=== PATIENT | male | born 1940 | race Caucasian/White ===

== ENCOUNTER → 2017-09-07 | Outpatient (CLI) | payer MEDICARE, OTHER ==
[2016-09-17 12:14] VITALS: BMI 32.9
[~2017-09-07] MED LIST: ALBU8.5H IH; ASPI-757 PO; ATOR-1 PO; ATOR40TA24 PO; ATOR40TA69 PO; BUPR-149 PO; CARB-71 PO; Cefdinir PO; DOCU100C49 PO; DOXY-179 PO; ESOM20TA PO; FINA5TAB67 PO; INSU100I30 SUBQ; INSU100I35 SQ; LANI SUBQ; LEUP3.753 IM; LOSA100T67 PO; LOSA50TA72 PO; MEMA10TA3 PO; METH4TAB66 PO; METO-253 PO; MIRA50TA PO; OMEP-137 PO; ONDA4TAB97 PO; OXYC-865 PO; OXYC5CAP21 PO; OXYGENHOME INH; RIVA10TA PO; RIVA20TA PO; TAMS0.4C70 PO
== END ==
LOC: LAB 13:36
PROVIDERS: ATTEND Urology
DX: C61 Malignant neoplasm of prostate (principal)
CPT/HCPCS: 36415; 84153; 84403

== ENCOUNTER → 2017-10-12 | Outpatient (CLI) | payer MEDICARE, OTHER ==
[2016-09-17 12:14] VITALS: BMI 32.9
[~2017-10-12] MED LIST changes: +DICL100G39 TOP; +OMEP-125 PO
[2017-10-12 15:58] LABS: PLATELET COUNT, AUTOMATED 200 K/uL (150-450)
== END ==
LOC: LAB 15:30
PROVIDERS: ATTEND Family Medicine
DX: E11.9 Type 2 diabetes mellitus without complications (principal); E55.9 Vitamin D deficiency, unspecified; E53.8 Deficiency of other specified B group vitamins; I48.91 Unspecified atrial fibrillation
CPT/HCPCS: 36415; 82040; 82247; 82306; 82310; 82374; 82435; 82565; 82607; 82947; 83036; 84075; 84132; 84155; 84295; 84450; 84460; 84520; 85025

== ENCOUNTER 2017-11-22 23:47 | Emergency (ER) | payer MEDICARE, OTHER ==
[2016-09-17 12:14] VITALS: BMI 32.9
[2017-11-23] MEDS ORDERED: NS(*) 0.9% 1000 ML BAG 1,000 ML IV ONE
[2017-11-23] MEDS ORDERED: PIPERACILLIN/TAZO*3.375GM VIAL 3.375 GM in NS(*) 0.9% 100 ML ADDVANT BAG 100 ML IVPB ONE
--- NOTE | 2017-11-23 00:04 | ER Report ---
History and Physical Time Seen By MD: 23:51 HPI/ROS CHIEF COMPLAINT: respiratory distress HISTORY OF PRESENT ILLNESS: This is a 77 year old male. His found him slumped down off the edge of his chair. He was having some alteration of his mental status. EMS was called and brought him here to the ER. He was tachycardia , tachypneic, hypoxic and hypotensive. Unable to get oxygen saturations up with non-rebreather at 15 liters. His reported that he had been in normal health earlier today. He did have an episode of vomiting and there was concern that he may have aspirated. No report of illness earlier today. He is currently having altered mental status, so unable to get any verbal information from the patient. He does look like he will look at us and register that we are talking to him. He has short periods where he will nod his head yes or no. REVIEW OF SYSTEMS: Unable to obtain Allergies: Coded Allergies: shellfish derived (Verified Allergy, Intermediate, NAUSEA/VOMITING, ) Home Meds Active Scripts Diclofenac Sodium 1% Gel (VOLTAREN 1% GEL) 100 Gm Gel..gram., 2 GM TOP QID Y for PAIN for 90 Days, #3 TUBE 4 Refills Prov:MEGAN FROST MD 10/13/17 Carbidopa/Levodopa (SINEMET 25-100 MG TABLET) 1 Each Tablet, 1 EACH PO TID for 90 Days, #270 TAB 2 Refills Prov:DEMARCO WALSH MD 03/15/17 Reported Medications Omeprazole (OMEPRAZOLE) 20 Mg Capsule.dr, 1 CAP PO QDAY, CAP 10/12/17 Oxygen (OXYGEN) Unknown Strength Inha, 3 L INH HS, L 02/24/17 Insulin Glargine (LANTUS) Unknown Strength Soln, 30 SUBQ HS, ML 02/24/17 Atorvastatin Calcium (ATORVASTATIN CALCIUM) 40 Mg Tablet, 0.5 TAB PO QDAY 02/24/17 Finasteride (FINASTERIDE) 5 Mg Tablet, 1 TAB PO QDAY 12/29/16 Rivaroxaban 20 Mg (XARELTO 20 MG) 20 Mg Tablet, 1 TAB PO QPM 09/16/16 Albuterol Sulfate 90 Mcg/Act (PROAIR HFA 90 MCG/ACT) 8.5 Gm Hfa.aer.ad, 2 PUFF IH PRN, INHALER 09/16/16 Insulin Aspart 100 Un/Ml Pen (NOVOLOG FLEXPEN) 100 Unit/1 Ml Insuln.pen, 16 UNIT SQ AT MEALTIMES 09/16/16 Memantine HCl 10 MG (Memantine HCl 10 MG) 10 Mg Tablet, 1 TAB PO BID 06/30/16 Metoprolol Tartrate (METOPROLOL TARTRATE) 50 Mg Tab, 0.5 TAB PO BID 06/30/16 Bupropion Hcl (BUPROPION HCL) 100 Mg Tablet, 1 TAB PO BID 06/30/16 Reviewed Nurses Notes: Yes Old Medical Records Reviewed: Yes Hx Smoking: No Smoking Status: Never Smoker Hx Substance Use Disorder: No Hx Alcohol Use: No Constitutional Vital Sign - Last 24 Hours 11/22/17 11/22/17 11/22/17 11/22/17 23:47 23:47 23:50 23:52 Pulse 138 137 Resp 37 35 B/P (MAP) 80/68 (72) Pulse Ox 73 77 O2 Flow Rate 15.0 11/22/17 11/23/17 11/23/17 11/23/17 23:57 00:02 00:05 00:07 Pulse 138 146 132 Resp 40 40 40 B/P (MAP) 94/87 (89) Pulse Ox 79 78 11/23/17 11/23/17 11/23/17 11/23/17 00:10 00:15 00:15 00:17 Pulse 148 Resp 40 B/P (MAP) 115/92 (100) 121/103 (109) Pulse Ox 88 FiO2 100.0 11/23/17 11/23/17 11/23/17 11/23/17 00:20 00:22 00:25 00:27 Pulse 166 138 Resp 36 38 B/P (MAP) 131/117 (122) 126/81 (96) Pulse Ox 69 91 11/23/17 11/23/17 11/23/17 11/23/17 00:32 00:37 00:40 00:42 Pulse 138 140 146 Resp 42 41 42 B/P (MAP) 84/70 (75) Pulse Ox 92 90 11/23/17 11/23/17 11/23/17 11/23/17 00:47 00:50 00:52 00:57 Pulse 141 140 142 Resp 39 45 34 B/P (MAP) 90/77 (81) Pulse Ox 88 92 89 11/23/17 11/23/17 11/23/17 11/23/17 01:07 01:14 01:17 01:20 Pulse 140 Resp 44 43 B/P (MAP) 153/102 (119) 150/78 (102) Pulse Ox 90 11/23/17 11/23/17 11/23/17 11/23/17 01:22 01:32 01:37 01:38 Pulse 129 125 121 Resp 45 46 30 B/P (MAP) 147/25 (65) Pulse Ox 88 88 85 11/23/17 11/23/17 11/23/17 11/23/17 01:42 01:47 01:50 01:52 Pulse 117 Resp 46 33 8 B/P (MAP) 72/58 (63) Pulse Ox 60 11/23/17 11/23/17 11/23/17 01:57 02:32 02:37 Pulse 0 ? Resp 0 Physical Exam General Appearance: The patient is able to make eye contact, nods yes and no to some questions. Respiratory distress and very ill in appearance. Eyes: Pupils are equal, round. No pallor, injection or icterus. ENT: Mucous membranes are dry. Some black material in mouth after vomiting. Neck: Supple. Respiratory: Tachypnea. Very wet and coarse breath sounds, worse in the left side. Increase work of breathing. Improves somewhat with BiPAP. Cardiovascular: Tachycardia. Poor peripheral perfusion with cold extremities and cyanosis, weak pulses. 1+ ankle edema. Gastrointestinal: Abdomen with minimal distension, no apparent tenderness. No masses or organomegaly. Normal active bowel sounds. Neurological: Very drowsy, will respond minimally to some questions. Will squeeze hand. Moving extremities, but weakly only. Skin: Cool, clammy. No rashes. Musculoskeletal: No apparent tenderness, but difficult to tell. DIFFERENTIAL DIAGNOSIS: After history and physical exam, differential diagnosis was considered for a patient with sign and symptoms of sepsis that I feel are from pneumonia given the coarse wet rales in the left lungs. Medical Decision Making Data Points Result Diagram: 11/23/17 0130 11/23/17 013 Laboratory Hematology Test 11/23/17 01:30 11/23/17 01:47 Red Blood Count 5.78 M/uL (4.00-5.60) Mean Corpuscular Volume 93.1 fL (80.0-96.0) Mean Corpuscular Hemoglobin 31.0 pg (26.0-33.0) Mean Corpuscular Hemoglobin Concent 33.3 g/dL (32.0-36.0) Red Cell Distribution Width 14.7 % (11.5-14.5) Mean Platelet Volume 7.9 fL (7.2-11.1) Neutrophils (%) (Auto) 73.9 % (39.4-72.5) Lymphocytes (%) (Auto) 21.9 % (17.6-49.6) Monocytes (%) (Auto) 3.5 % (4.1-12.4) Eosinophils (%) (Auto) 0.3 % (0.4-6.7) Basophils (%) (Auto) 0.4 % (0.3-1.4) Nucleated RBC Relative Count (auto) 0.0 /100WBC Neutrophils # (Auto) 12.4 K/uL (2.0-7.4) Lymphocytes # (Auto) 3.7 K/uL (1.3-3.6) Monocytes # (Auto) 0.6 K/uL (0.3-1.0) Eosinophils # (Auto) 0.1 K/uL (0.0-0.5) Basophils # (Auto) 0.1 K/uL (0.0-0.1) Nucleated RBC Absolute Count (auto) 0.01 K/uL Prothrombin Time 17.9 seconds (12.0-14.4) Prothromb Time International Ratio 1.45 Activated Partial Thromboplast Time 31 seconds (23-35) Sodium Level 144 mmol/L (137-145) Potassium Level 2.9 mmol/L (3.5-5.0) Chloride Level 101 mmol/L (98-107) Carbon Dioxide Level 17 mmol/L (22-30) Blood Urea Nitrogen 26 mg/dl (9-21) Creatinine 1.80 mg/dl (0.66-1.25) Glomerular Filtration Rate Calc 37.0 Random Glucose 387 mg/dl (75-110) Lactate 8.0 mmol/L (0.7-2.1) Calcium Level 9.4 mg/dl (8.4-10.2) Total Bilirubin 0.6 mg/dl (0.2-1.3) Aspartate Amino Transf (AST/SGOT) 30 U/L (0-35) Alanine Aminotransferase (ALT/SGPT) < 6 U/L (0-56) Alkaline Phosphatase 102 U/L (0-126) Troponin I 0.092 ng/ml Total Protein 6.4 gm/dl (6.3-8.2) Albumin 3.5 g/dl (3.5-5.0) Urine Color [place] Urine Clarity Slightly-cloudy Urine pH 5.0 pH (4.8-9.5) Urine Specific [place] 1.026 Urine Protein 30 mg/dL (NEGATIVE) Urine Glucose (UA) 50 mg/dL (NEGATIVE) Urine Ketones Trace mg/dL (NEGATIVE) Urine Blood Negative (NEGATIVE) Urine Nitrite Negative (NEGATIVE) Urine Bilirubin Negative (NEGATIVE) Urine Urobilinogen 4.0 mg/dL (0.2-1.9) Urine Leukocyte Esterase Negative (NEGATIVE) Urine RBC 1 /HPF (0-2/HPF) Urine WBC 4 /HPF (0-5/HPF) Urine Squamous Epithelial Cells Many /LPF (NONE-FEW) Urine Bacteria Negative /HPF (NONE-FEW) Urine Mucus Few /HPF (NONE-FEW) Chemistry Test 11/23/17 01:30 11/23/17 01:47 White Blood Count 16.8 k/uL (4.5-11.0) Red Blood Count 5.78 M/uL (4.00-5.60) Hemoglobin 17.9 g/dL (14.0-18.0) Hematocrit 53.8 % (42.0-52.0) Mean Corpuscular Volume 93.1 fL (80.0-96.0) Mean Corpuscular Hemoglobin 31.0 pg (26.0-33.0) Mean Corpuscular Hemoglobin Concent 33.3 g/dL (32.0-36.0) Red Cell Distribution Width 14.7 % (11.5-14.5) Platelet Count 272 K/uL (150-450) Mean Platelet Volume 7.9 fL (7.2-11.1) Neutrophils (%) (Auto) 73.9 % (39.4-72.5) Lymphocytes (%) (Auto) 21.9 % (17.6-49.6) Monocytes (%) (Auto) 3.5 % (4.1-12.4) Eosinophils (%) (Auto) 0.3 % (0.4-6.7) Basophils (%) (Auto) 0.4 % (0.3-1.4) Nucleated RBC Relative Count (auto) 0.0 /100WBC Neutrophils # (Auto) 12.4 K/uL (2.0-7.4) Lymphocytes # (Auto) 3.7 K/uL (1.3-3.6) Monocytes # (Auto) 0.6 K/uL (0.3-1.0) Eosinophils # (Auto) 0.1 K/uL (0.0-0.5) Basophils # (Auto) 0.1 K/uL (0.0-0.1) Nucleated RBC Absolute Count (auto) 0.01 K/uL Prothrombin Time 17.9 seconds (12.0-14.4) Prothromb Time International Ratio 1.45 Activated Partial Thromboplast Time 31 seconds (23-35) Glomerular Filtration Rate Calc 37.0 Lactate 8.0 mmol/L (0.7-2.1) Calcium Level 9.4 mg/dl (8.4-10.2) Total Bilirubin 0.6 mg/dl (0.2-1.3) Aspartate Amino Transf (AST/SGOT) 30 U/L (0-35) Alanine Aminotransferase (ALT/SGPT) < 6 U/L (0-56) Alkaline Phosphatase 102 U/L (0-126) Troponin I 0.092 ng/ml Total Protein 6.4 gm/dl (6.3-8.2) Albumin 3.5 g/dl (3.5-5.0) Urine Color Harika Urine Clarity Slightly-cloudy Urine pH 5.0 pH (4.8-9.5) Urine Specific [place] 1.026 Urine Protein 30 mg/dL (NEGATIVE) Urine Glucose (UA) 50 mg/dL (NEGATIVE) Urine Ketones Trace mg/dL (NEGATIVE) Urine Blood Negative (NEGATIVE) Urine Nitrite Negative (NEGATIVE) Urine Bilirubin Negative (NEGATIVE) Urine Urobilinogen 4.0 mg/dL (0.2-1.9) Urine Leukocyte Esterase Negative (NEGATIVE) Urine RBC 1 /HPF (0-2/HPF) Urine WBC 4 /HPF (0-5/HPF) Urine Squamous Epithelial Cells Many /LPF (NONE-FEW) Urine Bacteria Negative /HPF (NONE-FEW) Urine Mucus Few /HPF (NONE-FEW) Coagulation Test 11/23/17 01:30 Prothrombin Time 17.9 seconds Prothromb Time International Ratio 1.45 Activated Partial Thromboplast Time 31 seconds Urinalysis Test 11/23/17 01:47 Urine Color Harika Urine Clarity Slightly-cloudy Urine pH 5.0 pH (4.8-9.5) Urine Specific [place] 1.026 Urine Protein 30 mg/dL (NEGATIVE) Urine Glucose (UA) 50 mg/dL (NEGATIVE) Urine Ketones Trace mg/dL (NEGATIVE) Urine Blood Negative (NEGATIVE) Urine Nitrite Negative (NEGATIVE) Urine Bilirubin Negative (NEGATIVE) Urine Urobilinogen 4.0 mg/dL (0.2-1.9) Urine Leukocyte Esterase Negative (NEGATIVE) Urine RBC 1 /HPF (0-2/HPF) Urine WBC 4 /HPF (0-5/HPF) Urine Squamous Epithelial Cells Many /LPF (NONE-FEW) Urine Bacteria Negative /HPF (NONE-FEW) Urine Mucus Few /HPF (NONE-FEW) EKG/Imaging EKG Interpretation 12 lead EKG: Rhythm: Sinus tachycardia with short RI, rate 145 [place]: normal QRS: normal ST segments: normal Imaging CHEST SINGLE AP 11/22/2017 23:57 hours. HISTORY: Cough. Dyspnea. Hypoxia. COMPARISON: 09/17/2016 and studies dating to 09/15/2014. TECHNIQUE: Portable AP view of the chest. FINDINGS: Tubes/lines/hardware: There are external chest leads. There are surgical clips in the right upper quadrant, presumed from cholecystectomy. Pulmonary: Resolution of the right basilar opacity. There is subsegmental atelectasis or scarring at the left base. There is no pneumothorax or pleural effusion. There is mild elevation the right hemidiaphragm, unchanged. Cardiomediastinal: Cardiac and mediastinal silhouettes are within normal limits. There is mild to moderate aortic calcification. Bones/soft tissues: No acute osseous abnormality. There is mild degenerative change of the spine. The visible abdomen is normal. IMPRESSION: 1. Mild subsegmental atelectasis or scarring at the left base is new. Report Dictated By: Samanta Meeks at 11/23/2017 12:37 AM ED Course/Re-evaluation Clinical Indication for ER IV: Hydration, Hypotention, IV Access ED Course Initially, treatment was aimed at stabilizing the patient. He was not improving with the 100% oxygen by non-rebreather, so this was changed to BiPAP with some improvement. He initially had nodded to the RT that this seemed to help. An IV was started and normal saline had been started. Blood pressure was low so the IV was opened up to support pressure. A second IV was started with normal saline as well. Verified with the family that the patient's wished were DNR/DNI , despite not having any paperwork to this effect. Blood cultures were obtained, and elected to start IV Vancomycin 1g and IV Zosyn 3.375g. Started the Vancomycin, but the patient had onset of a rash that appeared like hives. It was uncertain if he had even gotten any of the Vancomycin yet. This was stopped. The patient was given Hydrocortisone 100mg IV , Benadryl 50mg IV, and some Zofran 4mg IV to help with vomiting. The Zosyn was then given. Chest x-ray was obtained, and does not show an infiltrate at this time. One of the IVs was pulled out during the x-ray. Blood taken earlier was unable to be run so attempt to get further labs and IV were made. IV was obtained, but unable to draw from it. Re-evaluation during these interventions showed improvement in the blood pressure. The tachycardia had reduces to the 120s. His pulse ox remained in the mid to high 80s. His breathing, despite the BiPAP seemed to be more shallow and had not improved in the rate. He was having some abdominal distension as well and was much less responsive that previously. After the Zosyn, we were going to be re-starting the Vancomycin, but noted that he had a more diffuse rash. This appeared to be a diffuse purpuric rash covering his trunk and onto his neck and extremities, which suggested possible onset of DIC. Discussed the case with Dr. Michaud, and suggested admission to the ICU, but was unsure if the patient would survive this infection/illness given what we were seeing. Dr. Michaud was going to come down to the ER to help evaluate further for admission; however, shortly after my call to him, the patient became bradycardic and then . The patient's was at bedside during this time and I explained to here what was happening. We called her son back in well, and they were able to contact other family members. The nuclear medicine technologist has been contacted as well. After our conversation, I feel comfortable that this was a case of overwhelming and rapid onset of infection and sepsis Decision to Disposition Date: Nov 23, 2017 Decision to Disposition Time: 02:56 Depart Departure Latest Vital Signs Vital Signs Date Time Temp Pulse Resp B/P (MAP) Pulse Ox O2 Delivery O2 Flow Rate FiO2 11/23/17 02:37 ??? 11/23/17 01:57 0 11/23/17 01:50 72/58 (63) 11/23/17 01:47 60 11/23/17 00:15 100.0 11/22/17 23:47 15.0 Impression: Primary Impression: Sepsis Additional Impression: Pneumonia Condition: Disposition: Referrals: MEGAN FROST MD (PCP) Problem Qualifiers Primary Impression: Sepsis Sepsis type: sepsis due to unspecified organism Qualified Codes: A41.9 - Sepsis, unspecified organism Additional Impression: Pneumonia Pneumonia type: due to unspecified organism Laterality: left Lung location : unspecified part of lung Qualified Codes: J18.9 - Pneumonia, unspecified organism AKASH MONTANEZ MD Nov 23, 2017 00:04
[2017-11-23] MEDS: VANCOMYCIN 1 GM ADDVIAL 1 GM in NS(*) 0.9% 250 ML ADDVAN BAG 250 ML IVPB ONE ×2 (00:31)
[2017-11-23] MEDS ORDERED: ONDANSETRON 4 MG/2 ML VIAL IVP ONE (00:40)
[2017-11-23] MEDS ORDERED: diphenhydrAMINE 50 MG/ML VIAL IVP ONE (00:40)
[2017-11-23] MEDS ORDERED: HYDROCORTISONE 100 MG/2 ML IVP ONE (00:40)
--- NOTE | 2017-11-23 00:45 | RADIOLOGY IMAGING REPORT ---
FACILITY: [facility] - [place] PATIENT NAME: Neil Ford : 1940 MR: [id number] V: [id number] EXAM DATE: ORDERING PHYSICIAN: AKASH MONTANEZ TECHNOLOGIST: Location: [facility] - [place] Patient: Neil Ford : 1940 Visit/Account:[id number] Date of Sevice: 11/22/2017 CHEST SINGLE AP 11/22/2017 23:57 hours. HISTORY: Cough. Dyspnea. Hypoxia. COMPARISON: 09/17/2016 and studies dating to 09/15/2014. TECHNIQUE: Portable AP view of the chest. FINDINGS: Tubes/lines/hardware: There are external chest leads. There are surgical clips in the right upper sasha drant, presumed from cholecystectomy. Pulmonary: Resolution of the right basilar opacity. There is subsegmental atelectasis or scarring at the left base. There is no pneumothorax or pleural effusion. There is mild elevation the right hemidi aphragm, unchanged. Cardiomediastinal: Cardiac and mediastinal silhouettes are within normal limits. There is mild to mod erate aortic calcification. Bones/soft tissues: No acute osseous abnormality. There is mild degenerative change of the spine. The visible abdomen is normal. IMPRESSION: 1. Mild subsegmental atelectasis or scarring at the left base is new. Report Dictated By: Samanta Meeks at 11/23/2017 12:37 AM Report E-Signed By: Samanta Meeks at 11/23/2017 12:40 AM WSN:[id number]
[2017-11-23 01:46] LABS: PLATELET COUNT, AUTOMATED 272 K/uL (150-450)
[2017-11-23 01:48] LABS: INR 1.45
[2017-11-23 01:50] VITALS: BP 72/58
--- NOTE | 2017-11-23 02:27 | EKG ---
FACILITY: [facility] - [place] PATIENT NAME: CHRISTOPHER CARSON : [id number] MR: [id number] V: [id number] EXAM DATE: ORDERING PHYSICIAN: AKASH MONTANEZ TECHNOLOGIST: YANNI Test Reason : SOB Blood Pressure : / mmHG Vent. Rate : 145 BPM Atrial Rate : 145 BPM P-R Int : 150 ms QRS Dur : 084 ms QT Int : 342 ms P-R-T Axes : 000 -23 071 degrees QTc Int : 531 ms Sinus tachycardia Otherwise normal ECG When compared with ECG of 16-SEP-2016 20:40, Vent. rate has increased BY 56 BPM T wave amplitude has increased in Anterior leads Confirmed by MAXIM BOJORQUEZ ([id number]) on 11/23/2017 6:42:23 AM Referred By: LISSETH Confirmed By:MAXIM BOJORQUEZ
[2017-11-23] MEDS ORDERED: EMS NS 0.9%(*) 1000 ML BAG 1,000 ML IV ONE (05:55)
== END 2017-11-23 02:37 | disposition expired ==
LOC: ER 23:54
DX: A41.9 Sepsis, unspecified organism (principal); J18.9 Pneumonia, unspecified organism
CPT/HCPCS: 36415; 71045; 81001; 83605; 84484; 85025; 85610; 85730; 87040; 87088; 93005; 94660; 96361; 96365; 96375; 99285; C1758; J1200; J1720; J2405; J2543; J7030; J7050; 82040; 82247; 82310; 82374; 82435; 82565; 82947; 84075; 84132; 84155; 84295; 84450; 84460; 84520; J3370

== ENCOUNTER → 2017-11-22 | Outpatient (CLI) | payer MEDICARE, OTHER ==
[2016-09-17 12:14] VITALS: BMI 32.9
== END ==
LOC: AMB 23:14
PROVIDERS: ATTEND Nurse Practitioner
DX: R06.03 Acute respiratory distress (principal); R41.82 Altered mental status, unspecified; R23.0 Cyanosis; R00.0 Tachycardia, unspecified
CPT/HCPCS: A0425; A0427